=== PATIENT | female | born 1975 | race Caucasian/White ===

== ENCOUNTER 2017-11-22 18:40 | Emergency (ER) | payer MEDICAID, SELFPAY ==
[2017-11-22 18:41] VITALS: BP 158/104; PULSE 109; RESP 14; TEMP 36.6; O2SAT 96; BMI 34.0
[2017-11-22 19:34] LABS: Absolute Lymphocyte Count 1.55 X10^3/ul (0.83-4.51); Absolute Neutrophil Count 5.1 X10^3/uL (2.0-7.7); Basophil# 0.04 X10^3/uL; Basophil% 0.5 % (0-1); Eosinophil# 0.23 X10^3/uL; Eosinophils% 3.2 % (0-5); Hematocrit 37.6 % (37-47); Hemoglobin 12.7 g/dl (12.0-15.0); Lymphocyte # 1.55 X10^3/ul (4.0); Lymphocyte % 21.2 % (19-41); Mean Corp Hgb Conc 33.8 g/gl (32-36); Mean Corpuscular Hgb 27.9 pg (27.0-32.0); Mean Corpuscular Volume 82.6 fL (81-99); Mean Platelet Vol. 8.6 fl (6.2-12.0); Monocyte# 0.41 X10^3/uL; Monocyte% 5.6 % (0-10); Neutrophil # 5.06 X10^3/uL (2.7-7.7); Neutrophil % 69.4 % (47-70); Platelet Count 275 K/mm3 (150-450); RBC Distribution Width CV 13.2 % (11.6-14.6); RBC Distribution Width SD 39.7 fl (35.1-43.9); Red Blood Count 4.55 M/mm3 (4.2-5.4); White Blood Count 7.3 K/mm3 (4.4-11.0)
[2017-11-22 19:36] LABS: POSITIVE COUNT NO; POSITIVE DIFFERENTIAL NO; POSITIVE MORPHOLOGY NO
[2017-11-22 19:46] LABS: Anion Gap 9 (5-15); BUN 9 mg/dL (7-18); BUN/Creat Ratio 13.8 RATIO (10-20); Chloride 106 mmol/L (98-107); Creatinine, Serum 0.65 mg/dL (0.55-1.02); EST Glomerular Filtration Rate 105 mL/min (>60); Est Glom Filt Rate - Afr Amer 127 mL/min (>60); Estimated Creatinine Clearance 96.37 ml/min; Glucose 128 mg/dL (74-106); Potassium 3.7 mmol/L (3.5-5.1); Sodium Level 139 mmol/L (136-145)
[2017-11-22 19:59] VITALS: RESP 18
[2017-11-22 20:21] LABS: Bacteria 0 SEEN /hpf (None Seen); Red Blood Cells-Urine 0 SEEN /hpf (0-5)
[2017-11-22 20:24] LABS: Pregnancy, Serum, hCG Quali. NEGATIVE Negative (0-9 Nonpreg)
[2017-11-22 20:38] LABS: Color, Urine Yellow (Yellow); Glucose, Dipstick Normal (Normal); Ketone-Dipstick Negative (Negative); Leukocyte Esterase-Dipstick 25 /ul (Negative); Nitrite-Dipstick Negative (Negative); Occult Blood-Urine 10 /ul (Negative); Protein-Dipstick 15 mg/dl (Negative); Urine Bilirubin Dipstick Negative (Negative); Urine Clarity Clear (Clear); Urine Urobilinogen Normal (Normal)
--- NOTE | 2017-11-22 20:39 | EKG12_ITS ---
Test Reason : Blood Pressure : / mmHG Vent. Rate : 103 BPM Atrial Rate : 103 BPM P-R Int : 148 ms QRS Dur : 076 ms QT Int : 360 ms P-R-T Axes : 038 -11 -02 degrees QTc Int : 471 ms Sinus tachycardia Otherwise normal ECG Confirmed by IVON BERNARDO MD ([id number]), deputy editor in chief JOHANNA WALDRON ([id number] on 11/25/2017 1:58:45 PM Referred By: Confirmed By:IVON BERNARDO MD
[2017-11-22 20:45] LABS: Squamous Epithelial Cells - UA 5-10 SEEN /hpf (5-10); White Blood Cells 0-5 SEEN /hpf (0-5)
[2017-11-22 20:46] LABS: Mucous, Urine 1+ /hpf (<or=2+)
[2017-11-22 21:06] LABS: Amphetamine Urine VISTA NEGATIVE (<1000 ng/mL); Barbiturate Urine VISTA NEGATIVE (< 200 ng/mL); Benzodiazepine Urine VISTA POSITIVE (< 200 ng/mL); Cocaine Urine VISTA NEGATIVE (< 300 ng/mL); Ecstacy Urine VISTA POSITIVE (< 500 ng/mL); Methadone Urine VISTA NEGATIVE (< 300 ng/mL); PCP Urine VISTA NEGATIVE (< 25 ng/mL); THC Urine VISTA NEGATIVE (< 50 ng/mL); Vista UDS pH Range 5
[2017-11-22 21:23] LABS: AST(SGOT) 31 U/L (15-37); Alanine Aminotransfer ALT/SGPT 55 U/L (13-56); Albumin, Serum 3.5 g/dL (3.2-5.0); Alkaline Phosphatase 122 U/L (45-117); Bilirubin, Direct 0.14 mg/dL (0.00-0.30); Globulin 3.5 g/dL (2.2-4.2)
[2017-11-22 21:28] LABS: Lipase 143 U/L (73-393)
[2017-11-22 21:31] VITALS: BP 127/82; PULSE 96; RESP 16; O2SAT 95
[2017-11-22 22:06] VITALS: RESP 16
[2017-11-22 22:51] LABS: Bedside Glucose 117 mg/dL (70-110)
[2017-11-22] MEDS: Acetaminophen 500 MG Tablet 1000 MG PO (22:57)
--- NOTE | 2017-11-22 23:11 | ED.VISSUMM ---
- ER Visit Summary Date of Service: 11/22/17 Chief Complaint: Depression and suicidal ideation History of Present Illness: The patient is a 42 F with depression and suicidal ideation that has been getting worse over the past several days. Patient states she has been depressed and has been having suicidal thoughts. Patient states she has thought of starting her car in her garage and is succeeding on carbon monoxide. Patient states she has not been eating or sleeping as much as normal. Patient also admits to some visual and auditory hallucinations. Patient states she feels like there is all around her and that is worse at night. Patient also states she sees a little girl and her house at night. Patient states sometimes this little girl talks to her and sometimes she does not. Physical Examination: Vital signs are stable except for mild tachycardia of 109. Patient is afebrile. Patient is in no acute distress. Heart was regular rate and rhythm. Lungs are clear and equal bilaterally. Abdomen is soft and nontender. Oral mucosa is pink and moist. Cranial nerves II through XII are intact. There are no focal motor or sensory deficits noted. Patient has a depressed mood and flat affect. Patient admits to suicidal ideations with a plan to asphyxiate on carbon monoxide. Patient also admits to visual and auditory hallucinations. Test Results: EKG showed a normal sinus rhythm with a rate of [address] or T-wave changes noted. QTc is 471. CBC was within normal limits. Basic metabolic profile showed an elevated glucose of 128. Urinalysis showed trace leukocytes with 5-10 epithelial cells. Urine tox screen was positive for methamphetamines and benzodiazepines. Serum alcohol level was normal. Emergency Department Course and Treatment: Crisis was contacted. Crisis actually saw the patient and the primary care physician's office initially. They recommend that the patient be admitted with her active suicidal ideation. They are attempting to admit the patient to [facility] currently. Patient was accepted at [facility] by Dr. Quintanilla. We are awaiting bed placement at this time. Patient will be transferred. Disposition: Transfer Impression: Depression with suicidal ideation This note was generated with [employer] dictation software. It may contain incorrect words, spelling, and punctuation that were not noted in review of the chart prior to signing ED Disposition - Plan for ED Patient: Disposition: [facility] Chief Complaint: Suicidal Diagnosis: Depression with suicidal ideation Referrals: Adriana Aguilar MD [Primary Care Provider] -
--- NOTE | 2017-11-22 23:17 | ED.DCSUM_ITS ---
- ER Visit Summary Date of Service: 11/22/17 Chief Complaint: Depression and suicidal ideation History of Present Illness: The patient is a 42 F with depression and suicidal ideation that has been getting worse over the past several days. Patient states she has been depressed and has been having suicidal thoughts. Patient states she has thought of starting her car in her garage and is succeeding on carbon monoxide. Patient states she has not been eating or sleeping as much as normal. Patient also admits to some visual and auditory hallucinations. Patient states she feels like there is all around her and that is worse at night. Patient also states she sees a little girl and her house at night. Patient states sometimes this little girl talks to her and sometimes she does not. Physical Examination: Vital signs are stable except for mild tachycardia of 109. Patient is afebrile. Patient is in no acute distress. Heart was regular rate and rhythm. Lungs are clear and equal bilaterally. Abdomen is soft and nontender. Oral mucosa is pink and moist. Cranial nerves II through XII are intact. There are no focal motor or sensory deficits noted. Patient has a depressed mood and flat affect. Patient admits to suicidal ideations with a plan to asphyxiate on carbon monoxide. Patient also admits to visual and auditory hallucinations. Test Results: EKG showed a normal sinus rhythm with a rate of [address] or T-wave changes noted. QTc is 471. CBC was within normal limits. Basic metabolic profile showed an elevated glucose of 128. Urinalysis showed trace leukocytes with 5-10 epithelial cells. Urine tox screen was positive for methamphetamines and benzodiazepines. Serum alcohol level was normal. Emergency Department Course and Treatment: Crisis was contacted. Crisis actually saw the patient and the primary care physician's office initially. They recommend that the patient be admitted with her active suicidal ideation. They are attempting to admit the patient to [facility] currently. Patient was accepted at [facility] by Dr. Quintanilla. We are awaiting bed placement at this time. Patient will be transferred. Disposition: Transfer Impression: Depression with suicidal ideation This note was generated with [employer]if[employer] dictation software. It may contain incorrect words, spelling, and punctuation that were not noted in review of the chart prior to signing ED Disposition - Plan for ED Patient: Disposition: [facility] Chief Complaint: Suicidal Diagnosis: Depression with suicidal ideation Referrals: Adriana Aguilar MD [Primary Care Provider] -
[2017-11-22] MEDS: ALPRAZolam 0.5 MG Tablet PO (23:20)
--- NOTE | 2017-11-22 23:20 | ED.RN ---
pt became anxious and wanted to leave. explained to pt she is pink slipped and could not leave. explained to sister of pt and pt that the process to get placement can take a long time. pt understand that she can not leave. pt c/o of anxiety and headache. made aware, received order for Tylenol and Xanax.
[2017-11-23 00:29] VITALS: RESP 16
--- NOTE | 2017-11-23 02:57 | ED.RN ---
DISPOSITION CHARTED ON DOWNTIME PAPERWORK.
== END 2017-11-23 02:05 | disposition short-term general hospital (02) ==
PROVIDERS: Emergency Provider Emergency Medicine; Family Provider Internal Medicine; PCP Internal Medicine
DX: F32.9 Major depressive disorder, single episode, unspecified (principal); R45.851 Suicidal ideations; I10 Essential (primary) hypertension; E11.9 Type 2 diabetes mellitus without complications; E78.00 Pure hypercholesterolemia, unspecified; Z79.4 Long term (current) use of insulin; Z79.899 Other long term (current) drug therapy
CPT/HCPCS: 36415; 80048; 80076; 80307; 80320; 81001; 82962; 83690; 84703; 85025; 93005; 99282; G0480